=== PATIENT | female | born 1965 | race Caucasian/White ===

== ENCOUNTER 2020-10-18 17:35 | Inpatient (IN) | payer BC, SELFPAY ==
[~2020-10-18] VITALS: Ht 165.1 cm; Wt 121.6 kg
[~2020-10-18 17:35] MED LIST: IRON SUPPLEMENT PO
[2020-10-18 17:36] VITALS: BP_SYST 167
[2020-10-18 18:19] LABS: BASOPHILS # (AUTO) 0.1 K/uL (0.0-0.2); BASOPHILS % (AUTO) 0.6 % (0.0-2.0); EOSINOPHILS # (AUTO) 0.1 K/uL (0.0-0.4); EOSINOPHILS % (AUTO) 1.2 % (0.0-4.0); HEMATOCRIT 39.8 % (36-48); HEMOGLOBIN 13.4 g/dL (12.0-16.0); LYMPHOCYTES # (AUTO) 2.2 K/uL (1.0-5.5); MEAN CORPUSCULAR HEMOGLOBIN 27 pg (27-31); MEAN CORPUSCULAR HGB CONC 34 % (32-36); MEAN CORPUSCULAR VOLUME 81 fL (79.0-98.0); MONOCYTES # (AUTO) 0.6 K/uL (0.0-1.0); MONOCYTES % (AUTO) 6.7 % (1.7-9.3); NEUTROPHILS # (AUTO) 5.6 K/uL (1.8-7.7); NEUTROPHILS % (AUTO) 65.5 % (40.0-70.0); PLATELET COUNT (AUTO) 384 K/uL (130-430); RED BLOOD CELL COUNT(AUTO) 4.94 MIL/uL (4.2-6.2); RED CELL DISTRIBUTION WIDTH 14.8 % (9.0-15.0); WHITE BLOOD COUNT (AUTO) 8.6 K/uL (4.8-10.8)
[2020-10-18 18:29] LABS: CALCIUM 9.8 mg/dL (8.4-11.0); POTASSIUM 4.3 mmol/L (3.5-5.1)
[2020-10-18] MEDS ORDERED: levETIRAcetam 1,000 MG in NS 90 ML IV ONE (18:30)
[2020-10-18 18:33] LABS: PROTHROMBIN TIME 9.9 SECS (9.5-12.5)
[2020-10-18 18:35] LABS: ALBUMIN 3.7 g/dL (3.4-4.8); TOTAL BILIRUBIN 0.4 mg/dL (0.0-1.0)
[2020-10-18] MEDS ORDERED: IOHEXOL 350 mgI/mL, 150 ML INFUS..BTL IV ONE (18:49)
[2020-10-18 22:10] VITALS: BP_SYST 147
[2020-10-19 00:10] VITALS: BP_SYST 156
[2020-10-19] MEDS ORDERED: ONDANSETRON HCL 4 MG/2 ML VIAL IVP PRN (00:30)
[2020-10-19] MEDS ORDERED: LORazepam 2 MG/ML VIAL IVP PRN (00:30)
[2020-10-19] MEDS ORDERED: ACETAMINOPHEN 325 MG TABLET PO PRN (00:30)
[2020-10-19 06:00] LABS: BASOPHILS % (AUTO) 0.5 % (0.0-2.0); EOSINOPHILS # (AUTO) 0.1 K/uL (0.0-0.4); EOSINOPHILS % (AUTO) 1.8 % (0.0-4.0); HEMATOCRIT 37.7 % (36-48); HEMOGLOBIN 12.5 g/dL (12.0-16.0); LYMPHOCYTES # (AUTO) 2.2 K/uL (1.0-5.5); LYMPHOCYTES % (AUTO) 26.9 % (20.5-51.5); MEAN CORPUSCULAR HEMOGLOBIN 27 pg (27-31); MEAN CORPUSCULAR HGB CONC 33 % (32-36); MEAN CORPUSCULAR VOLUME 81 fL (79.0-98.0); MONOCYTES # (AUTO) 0.6 K/uL (0.0-1.0); MONOCYTES % (AUTO) 7.5 % (1.7-9.3); NEUTROPHILS # (AUTO) 5.1 K/uL (1.8-7.7); NEUTROPHILS % (AUTO) 63.3 % (40.0-70.0); PLATELET COUNT (AUTO) 347 K/uL (130-430); RED BLOOD CELL COUNT(AUTO) 4.66 MIL/uL (4.2-6.2)
[2020-10-19] MEDS ORDERED: NORMAL SALINE 5 ML DISP.SYRIN IVF SCH (06:00)
[2020-10-19] MEDS: NORMAL SALINE 5 ML DISP.SYRIN IVF SCH ×3 (06:16→22:38)
[2020-10-19 06:33] LABS: CALCIUM 8.9 mg/dL (8.4-11.0); CREATININE 0.9 mg/dL (0.55-1.30); PHOSPHORUS 4.3 mg/dL (2.7-4.5); POTASSIUM 4.1 mmol/L (3.5-5.1)
[2020-10-19] MEDS: ASPIRIN 81 MG TAB.CHEW PO SCH (08:37)
[2020-10-19 08:48] VITALS: BP_SYST 150
[2020-10-19 12:50] VITALS: BP_SYST 134
[2020-10-19 16:46] VITALS: BP_SYST 141
[2020-10-19 20:00] VITALS: BP_SYST 136
[2020-10-20 01:05] VITALS: BP_SYST 148
[2020-10-20] MEDS: NORMAL SALINE 5 ML DISP.SYRIN IVF SCH (06:30)
[2020-10-20 07:34] LABS: CHOLESTEROL 228 mg/dL (<200); HDL CHOLESTEROL 46 mg/dL (>55); LDL CHOLESTEROL 172 mg/dL (<100); TRIGLYCERIDES 122 mg/dL (30-150)
[2020-10-20 08:00] VITALS: BP_SYST 131
[2020-10-20] MEDS: ASPIRIN 81 MG TAB.CHEW PO SCH (08:47)
[2020-10-20] MEDS ORDERED: ASPI-989 PO (11:38)
[2020-10-20 12:58] VITALS: BP_SYST 136
[2020-10-20] MEDS ORDERED: LIP10 PO (13:17)
== END 2020-10-20 13:30 | disposition home health service (06) | DRG 69 ==
LOC: SED 17:35 → STU 20:45
PROVIDERS: ADMIT Internal Medicine Hospice and Palliative Medicine; ATTEND Internal Medicine Hospice and Palliative Medicine
DX: G45.9 Transient cerebral ischemic attack, unspecified (principal); Z68.41 Body mass index [BMI] 40.0-44.9, adult; E66.01 Morbid (severe) obesity due to excess calories; R56.9 Unspecified convulsions; E78.5 Hyperlipidemia, unspecified; R73.9 Hyperglycemia, unspecified; Z88.5 Allergy status to narcotic agent; Z88.8 Allergy status to other drugs, medicaments and biological substances
CPT/HCPCS: 36415; 70450-TC; 70496; 70498; 70551; 71045; 76376; 80048; 80053; 80061; 82962; 83735-TC; 84100-TC; 84484; 85025; 85610-TC; 85730-TC; 86886; 86900; 86901; 93005; 93306; 95816; 96365; 97116-GP; 97530-GP; G0378; J1953; Q9967

== ENCOUNTER 2020-11-30 10:43 | Outpatient (CLI) | payer BC ==
[~2020-11-30 10:43] MED LIST changes: +ASPI-989 PO; -IRON SUPPLEMENT PO; +LIP10 PO
== END 2020-11-30 20:33 | disposition home or self-care (01) ==
LOC: SMI 10:43
DX: I69.351 Hemiplegia and hemiparesis following cerebral infarction affecting right dominant side (principal)
CPT/HCPCS: 70551